=== PATIENT | male | born 1955 | race African-American/Black ===

== ENCOUNTER 2022-07-30 11:11 | Emergency (ER) | payer OTHER ==
[~2022-07-30] VITALS: Ht 180.3 cm; Wt 95.3 kg
--- NOTE | 2022-07-30 11:15 | NUR ---
Dr. Angel at bedside. MSE in progress.
[2022-07-30] MEDS ORDERED: CLOT15CR5 TP (11:31)
--- NOTE | 2022-07-30 11:35 | NUR ---
Patient a/o x 4. NAD noted.
--- NOTE | 2022-07-30 12:00 | NUR ---
Patient discharged to home in stable condition. A/O x 4. NAD noted. Ambulatory with a steady gait. All belongings with patient. Written and verbal after care instructions given. Patient verbalizes understanding of instructions. Stressed follow up or return to ER for worsening s/s.
== END 2022-07-30 12:02 | disposition home or self-care (01) ==
LOC: ER 11:14
DX: R21 Rash and other nonspecific skin eruption (principal); Z86.711 Personal history of pulmonary embolism
CPT/HCPCS: A4663